=== PATIENT | male | born 1970 | race Caucasian/White ===

== ENCOUNTER → 2016-06-26 | Outpatient (CLI) | payer OTHER ==
[~2016-06-26] MED LIST: ALPR0.5T3 PO; ASPI325T PO; ASPI81TA19 PO; BAYEMIS; CETI10 PO; COZA100T PO; EMPA1TAB PO; FLUO20TA20 PO; GABA300C3 PO; GABA300C5 PO; GEMF600T PO; GLIP10TA6 PO; GLIP5 PO; GLIP5TAB8 PO; GLUCTAB PO; GLUCTES27; HYDR-3583 PO; INSU1INJ14 SQ; LEVEMIR SQ; METF1000 PO; METO10TA PO; METO25TA3 PO; METO50TA PO; NAPR500 PO; NOVO7030P2 SQ; NOVOLOGP2 SQ; NOVORP2 SQ; ONDA1TAB16 PO; ONDA4TAB7 SL; PANT40TA3 PO; PHEN12.5 PO; PRAV40TA2 PO; PRAV80TA2 PO; SERT-129 PO; TRAM50 PO; TRAM50TA PO; TRAZ50TA12 PO; ZOLP5TAB3 PO; [UNRECOGNIZED DRUG - CODE]
[2016-06-26 13:37] LABS: AUTOMATED NEUTROPHIL # 4.1 TH/MM3 (1.8-7.7); BASOPHIL # 0.2 TH/MM3 (0-0.2); EOSINOPHIL # 0.3 TH/MM3 (0-0.4); EOSINOPHIL % 4.1 % (0.0-4.0); HEMATOCRIT 43.4 % (39.0-51.0); LYMPH % 30.5 % (9.0-44.0); LYMPHOCYTE # 2.4 TH/MM3 (1.0-4.8); MEAN CELL VOLUME 72.1 FL (80.0-100.0); MEAN CORPUSCULAR HEMOGLOBIN 23.6 PG (27.0-34.0); MEAN CORPUSCULAR HGB CONC 32.7 % (32.0-36.0); MONO % 11.1 % (0.0-8.0); NEUT % 52.3 % (16.0-70.0); PLATELET COUNT 299 TH/MM3 (150-450); RED BLOOD COUNT 6.02 MIL/MM3 (4.50-5.90); RED CELL DISTRIBUTION WIDTH 14.8 % (11.6-17.2); WHITE BLOOD COUNT 7.8 TH/MM3 (4.0-11.0)
[2016-06-26 13:41] LABS: HEMO FLAGS AUTO DIFF
[2016-06-26 14:07] LABS: ALKALINE PHOSPHATASE 58 U/L (45-117); ALT (GPT) 31 U/L (12-78); ANION GAP 7 MEQ/L (5-15); AST (GOT) 20 U/L (15-37); BICARBONATE 29.1 MEQ/L (21.0-32.0); BLOOD UREA NITROGEN 24 MG/DL (7-18); CHLORIDE 100 MEQ/L (98-107); GLOMERULAR FILTRATION RATE 57 ML/MIN (>89); GLUCOSE,FASTING 262 MG/DL (74-99); HDL CHOLESTEROL 34.2 MG/DL (40.0-60.0); LDL CHOLESTEROL 75 MG/DL (0-99); POTASSIUM 4.6 MEQ/L (3.5-5.1); SODIUM (NA) 136 MEQ/L (136-145); TOTAL BILIRUBIN ADULT 0.4 MG/DL (0.2-1.0)
[2016-06-26 14:15] LABS: SCAN/DIFF AUTO DIFF CONFIRMED
[2016-06-26 16:25] LABS: HEMOGLOBIN A1a 1.1 %; HEMOGLOBIN A1b 2.8 %; HEMOGLOBIN Ao 77.4 %; HEMOGLOBIN LA1C 3.3 %
== END ==
LOC: CLAB 13:12
PROVIDERS: ATTEND Nurse Practitioner Family
DX: E11.9 Type 2 diabetes mellitus without complications (principal); E78.5 Hyperlipidemia, unspecified
CPT/HCPCS: 36415; 80053; 80061; 83036; 84443; 85025

== ENCOUNTER → 2016-10-09 | Outpatient (CLI) | payer OTHER ==
[~2016-10-09] MED LIST changes: -EMPA1TAB PO; -INSU1INJ14 SQ; -LEVEMIR SQ; -NOVOLOGP2 SQ
[2016-10-09 12:28] LABS: HDL CHOLESTEROL 28.4 MG/DL (40.0-60.0)
== END ==
LOC: CLAB 11:32
PROVIDERS: ATTEND Nurse Practitioner Family
DX: E78.5 Hyperlipidemia, unspecified (principal)
CPT/HCPCS: 36415; 80061

== ENCOUNTER → 2016-10-19 | Outpatient (CLI) | payer OTHER ==
[2016-10-19 15:54] LABS: HEMOGLOBIN A1a 1.6 %; HEMOGLOBIN A1b 2.8 %; HEMOGLOBIN LA1C 2.1 %; HEMOGLOBIN P3 4.3 %
== END ==
LOC: CLAB 10:34
PROVIDERS: ATTEND Nurse Practitioner Family
DX: E11.9 Type 2 diabetes mellitus without complications (principal)
CPT/HCPCS: 36415; 83036